=== PATIENT | female | born 1965 | race Caucasian/White ===

== ENCOUNTER 2021-04-03 08:30 | Emergency (ER) | payer BC, SELFPAY ==
[2021-04-03 08:38] VITALS: BP 141/77; PULSE 73; RESP 20; TEMP 37.6; O2SAT 98
--- NOTE | 2021-04-03 09:19 | ED.URI ---
HPI - URI/Sore Throat General Chief Complaint: Upper Respiratory Infection Stated Complaint: diarhhea fever aches nausea Source: patient Mode of arrival: ambulatory Limitations: no limitations History of Present Illness HPI Narrative: Patient is a 55-year-old female who presents with multiple complaints. She reports congestion, nasal drainage, sore throat, body aches, nausea and diarrhea. She reports URI symptoms x2 to 3 days, nausea and diarrhea starting last night. She reports Covid vaccinated x2. She reports going to work this a.m. and being sent home. She denies taking [id number] medications prior to arrival. MD elicited complaint: nasal congestion and other (Nausea, diarrhea) Related Data Home Medications Medication Instructions Recorded Confirmed celecoxib 200 mg PO DAILY 04/03/21 04/03/21 citalopram 20 mg PO DAILY 04/03/21 04/03/21 gabapentin 100 mg PO BID 04/03/21 04/03/21 hydrochlorothiazide 25 mg PO DAILY 04/03/21 04/03/21 lovastatin 10 mg PO DAILY 04/03/21 04/03/21 omeprazole 40 mg PO DAILY 04/03/21 04/03/21 temazepam 30 mg PO HS 04/03/21 04/03/21 Allergies Allergy/AdvReac Type Severity Reaction Status Date / Time Sulfa (Sulfonamide Allergy Intermediate Rash Verified 04/03/21 09:02 Antibiotics) Review of Systems Review of Systems: CONSTITUTIONAL: Reports chills and body aches. EYES: Denies visual changes, redness, or discharge. ENT: Reports rhinorrhea, congestion, and sore throat CARDIOVASCULAR: Denies chest pain, palpitations, or edema. RESPIRATORY: Denies cough or dyspnea. GASTROINTESTINAL: Denies abdominal pain, reports nausea and diarrhea GENITOURINARY: Denies dysuria or hematuria. SKIN: Denies rash or itching. MUSCULOSKELETAL: Denies back pain, joint pain, or myalgia. NEUROLOGIC: Denies headache, numbness, dizziness, or weakness. PSYCHIATRIC: Denies anxiety or depression. [facility] Past Medical History Medical History (Updated 04/03/21 @ 09:26 by DAWN Camp) HTN (hypertension) Surgical History Surgical History No significant past surgical history Family History Family History (Updated 04/03/21 @ 09:21 by DAWN Camp) Other Hypertension Social History Social History (Updated 04/03/21 @ 09:22 by DAWN Camp) Smoking status: Never smoker Alcohol intake: never Substance use: never Occupation/Education: occupation Comments At the time of signature, I have reviewed and agree with nursing past medical, surgical, social, and family history unless otherwise noted. Please see nursing chart for further information. There is no relevant family history pertinent to the presenting complaint. Exam Narrative: GENERAL: Ill-appearing but in no acute distress HEAD: Normocephalic, atraumatic. EYES: EOMI. No redness or drainage. Conjunctiva are normal. ENT: Mucous membranes pink and moist. Nares clear. No rhinorrhea. Throat normal. Uvula midline. CHEST: No respiratory distress. HEART: Regular rate and rhythm. GI: Soft, nontender without rebound, or guarding. No distention. MUSCULOSKELETAL: No bony tenderness. EXTREMITIES: Normal range of motion. SKIN: Warm, dry, no rash. NEURO: No focal deficits. Alert and oriented x3. Gait steady. PSYCH: Normal affect. No signs of depression or anxiety. Course Vital Signs Vital signs: Vital Signs Temperature 37.6 C H 04/03/21 08:38 Pulse Rate 73 04/03/21 08:38 Respiratory Rate 20 04/03/21 08:38 Blood Pressure 141/77 H 04/03/21 08:38 Pulse Oximetry 98 04/03/21 08:38 Temperature 37.6 C H 04/03/21 08:38 Pulse Rate 73 04/03/21 08:38 Respiratory Rate 20 04/03/21 08:38 Blood Pressure 141/77 H 04/03/21 08:38 Pulse Oximetry 98 04/03/21 08:38 Reviewed-patient is informed that they may have pre-hypertension or hypertension based on a blood pressure reading. I recommend the patient call the primary care provider
[2021-04-04 20:43] LABS: SARS-CoV-2 RNA PCR Negative
== END 2021-04-03 09:30 | disposition home or self-care (01) ==
PROVIDERS: Emergency Provider Nurse Practitioner; PCP Physician Assistant
DX: J06.9 Acute upper respiratory infection, unspecified (principal); B34.9 Viral infection, unspecified; Z20.822 Contact with and (suspected) exposure to COVID-19; I10 Essential (primary) hypertension
CPT/HCPCS: 87426; 99213; C9803; G0463; U0003; U0005